=== PATIENT | male | born 1990 | race Caucasian/White ===

== ENCOUNTER 2016-05-26 10:50 | Emergency (ER) | payer OTHER ==
[2016-05-26 11:35] LABS: HEMOGLOBIN 14.6 gm/dl (14.0-17.5); RED BLOOD COUNT 4.75 M/UL (4.20-5.50); WHITE BLOOD COUNT 6.6 K/UL (4.5-11.0)
[2016-05-26 12:25] LABS: BUN/CREATININE RATIO 19 (0-10)
== END 2016-05-26 14:29 | disposition home or self-care (01) ==
LOC: ER1 10:50
PROVIDERS: Nurse Practitioner Family
DX: N20.0 Calculus of kidney (principal)
CPT/HCPCS: 36415; 80053; 81001; 82150; 83690; 85025; 87086; 96374; 96375; 99284; J1885; J2405

== ENCOUNTER 2016-07-26 13:34 | Emergency (ER) | payer OTHER ==
[2016-07-26 14:46] LABS: RED BLOOD COUNT 4.59 M/UL (4.20-5.50); WHITE BLOOD COUNT 6.4 K/UL (4.5-11.0)
[2016-07-26 14:47] LABS: BUN/CREATININE RATIO 13 (0-10)
== END 2016-07-26 16:54 | disposition home or self-care (01) ==
LOC: ER1 13:34
PROVIDERS: Family Medicine
DX: K59.00 Constipation, unspecified (principal); Z90.49 Acquired absence of other specified parts of digestive tract
CPT/HCPCS: 36415; 80053; 81001; 83690; 85025; 96374; 96375; 99284; J2270; J2405; J7050; Q9962